=== PATIENT | female | born 1960 | race Two or more races ===

== ENCOUNTER 2020-05-22 06:00 | Day surgery (SDC) | payer OTHER | END 2020-05-22 10:50 | disposition home or self-care (01) | LOC: AMB-ENDOS 06:00 | PROVIDERS: ATTEND Surgery | DX: D12.3 Benign neoplasm of transverse colon (principal); Z20.828 Contact with and (suspected) exposure to other viral communicable diseases ==

== ENCOUNTER 2021-06-02 12:38 | Inpatient (IN) | payer OTHER ==
[~2021-06-02] VITALS: Ht 165.1 cm; Wt 86.2 kg
[2021-06-02] MEDS ORDERED: HORIZANT300 MG PO (13:01)
[2021-06-02] MEDS ORDERED: XATMEP2.5 MG/1 M PO (13:01)
[2021-06-02] MEDS ORDERED: LEVSIN/SL0.125 MG SL (13:02)
[2021-06-06] MEDS ORDERED: CIPRO500 MG PO (14:25)
[2021-06-06] MEDS ORDERED: FLAGYL500MG PO (14:25)
== END 2021-06-06 14:42 | disposition home or self-care (01) | DRG 392 ==
LOC: ER 12:38 → MEDI 21:00
PROVIDERS: ADMIT Internal Medicine; ATTEND Internal Medicine
PROC: BW2110Z Computerized Tomography (CT Scan) of Abdomen and Pelvis using Low Osmolar Contrast, Unenhanced and Enhanced (ICD-10-PCS; principal; 2021-06-02)
DX: K57.32 Diverticulitis of large intestine without perforation or abscess without bleeding (principal); D12.0 Benign neoplasm of cecum; D12.3 Benign neoplasm of transverse colon

== ENCOUNTER 2021-07-20 10:00 | Inpatient (IN) | payer OTHER ==
[~2021-07-20] VITALS: Ht 165.1 cm; Wt 84.8 kg
[~2021-07-20 10:00] MED LIST: CIPRO500 MG PO; FLAGYL500MG PO; HORIZANT300 MG PO; LEVSIN/SL0.125 MG SL; XATMEP2.5 MG/1 M PO
[2021-07-20] MEDS ORDERED: FOLIC ACID PO (12:50)
[2021-07-26] MEDS ORDERED: GABAPENTIN300 M2 (13:44)
[2021-07-26] MEDS ORDERED: LIPO-FLAVONOID1 EACH (13:44)
[2021-07-26] MEDS ORDERED: ABATINEX680 MG (13:44)
[2021-07-26] MEDS ORDERED: METHOTREXATE2.5 MG (13:44)
[2021-07-29] MEDS ORDERED: NEURONTIN300 MG PO (11:26)
[2021-07-29] MEDS ORDERED: INTESTINEX680 M1 PO (11:26)
[2021-07-29] MEDS ORDERED: LEVSIN/SL0.125 MG SL (11:26)
== END 2021-07-29 11:49 | disposition home or self-care (01) | DRG 330 ==
LOC: SURH 07-26 10:00 → O/R 07-26 11:30 → SURG 07-26 11:30 → SURH 07-26 13:45 → SURG 07-26 19:30
PROVIDERS: ADMIT Surgery; ATTEND Surgery
PROC: 0DTN4ZZ Resection of Sigmoid Colon, Percutaneous Endoscopic Approach (ICD-10-PCS; 2021-07-26)
PROC: 0DJD8ZZ Inspection of Lower Intestinal Tract, Via Natural or Artificial Opening Endoscopic (ICD-10-PCS; 2021-07-26)
PROC: 3E0F7SF Introduction of Other Gas into Respiratory Tract, Via Natural or Artificial Opening (ICD-10-PCS; 2021-07-26)
PROC: 0DTP4ZZ Resection of Rectum, Percutaneous Endoscopic Approach (ICD-10-PCS; principal; 2021-07-26 13:45)
DX: K57.32 Diverticulitis of large intestine without perforation or abscess without bleeding (principal); K56.699 Other intestinal obstruction unspecified as to partial versus complete obstruction; K66.0 Peritoneal adhesions (postprocedural) (postinfection)

== ENCOUNTER 2021-08-22 18:06 | Inpatient (IN) | payer OTHER ==
[~2021-08-22] VITALS: Ht 165.1 cm; Wt 83.9 kg
[~2021-08-22 18:06] MED LIST changes: +ABATINEX680 MG; +FOLIC ACID PO; +GABAPENTIN300 M2; +INTESTINEX680 M1 PO; +LIPO-FLAVONOID1 EACH; +METHOTREXATE2.5 MG; +NEURONTIN300 MG PO
--- NOTE | 2021-08-22 18:13 | NUR ---
SE RECIBE PTE ALERTA, ORIENTADA EN MICKEY LILLIE ESFERAS. PTE REFIERE QUE FUE OPERADA DEL COLON POR LA DRA.MARLA NAVAS EN RE 4 DE KEN[place]Y ANO. REFIERE QUE HOY AL EVACUAR TUVO SANGR[place] AL LIMPIARSE, DEFINE EL SANGR[place] JUAN DEBI "LIQUIDO, Y BERNIE DEVAUGHN". LA MISMA REFIERE DOLOR Y "PUNZADA" EN EL ANO.
--- NOTE | 2021-08-22 18:45 | NUR ---
PTE EVALUADA POR EL DR CAMPOS QUIEN [place]. MS S MARSHALL ORIENTA SOBRE EL MISMO, LO CUAL REFIERE ENTENDER, REALIZA PRUEBAS DE LABORATORIO Y ADMINISTRA MEDICAMENTO RAKAN ORDEN MEDICA Y SIGUIENDO MEDIDAS ASEPTICAS.
--- NOTE | 2021-08-22 23:12 | NUR ---
SE RECIBE PACIENTE DE TURNO ANTERIOR, ALERTA Y ORIENTADA EN TIEMPO LUGAR Y PERSONA. CON VENOPUNCION PATENTE, RULA DE ERITEMA Y EDEMA, RECIBIENDO AL MOMENTO 0.9 NSS 1000ML A 200ML/HR. PACIENTE RULA DE DOLOR AL MOMENTO. SE MANTIENE CON BARANDAS ELEVADAS Y FRENOS AJUSTADOS POR SEGURIDAD. SE MANTIENE E OBSERVACION POR CAMBIOS EN FERRER CONDICION.
--- NOTE | 2021-08-23 08:01 | NUR ---
SE RECIBE PACIENTE FEMENINA ALERTA Y ORIENTADA EN [place] LILL[place] ESFERA LA CUAL SE OBSERVA CON CANALIZACION PATENTE, LIMPIA Y SECA CON 0.9 NSS AT 200ML/HR. PACIENTE PENDIENTE A CONSULTA CON DRA DEMARCUS NAVAS. SE MANTIENE PACIENTE EN OBSERVACION POR CAMBIOS SIGNIFICATIVOS.
== END 2021-08-25 17:45 | disposition home or self-care (01) | DRG 395 ==
LOC: ER 18:06 → SEC-K 08-23 09:29 → SURH 08-23 09:29 → O/R 08-23 14:43 → SURH 08-23 18:38
PROVIDERS: ADMIT Surgery; ATTEND Surgery
PROC: 0DJD8ZZ Inspection of Lower Intestinal Tract, Via Natural or Artificial Opening Endoscopic (ICD-10-PCS; principal; 2021-08-23)
PROC: BW2110Z Computerized Tomography (CT Scan) of Abdomen and Pelvis using Low Osmolar Contrast, Unenhanced and Enhanced (ICD-10-PCS; 2021-08-23)
DX: K64.8 Other hemorrhoids (principal); K62.9 Disease of anus and rectum, unspecified; K56.41 Fecal impaction; Z20.822 Contact with and (suspected) exposure to COVID-19